=== PATIENT | female | born 1975 | race Caucasian/White ===

== ENCOUNTER 2017-01-07 17:46 | Emergency (ER) | payer MEDICARE, OTHER | END 2017-01-07 21:28 | disposition home or self-care (01) | LOC: ER 17:46 | DX: R10.9 Unspecified abdominal pain (principal); R31.9 Hematuria, unspecified; R39.11 Hesitancy of micturition; R11.0 Nausea; Z87.442 Personal history of urinary calculi; Z90.49 Acquired absence of other specified parts of digestive tract; Z79.899 Other long term (current) drug therapy; Z91.018 Allergy to other foods; Z88.1 Allergy status to other antibiotic agents; Z88.6 Allergy status to analgesic agent; Z88.8 Allergy status to other drugs, medicaments and biological substances | CPT/HCPCS: 96372; J2550 ==